=== PATIENT | female | born 1940 | race Caucasian/White ===

== ENCOUNTER 2021-06-15 13:48 | Emergency (ER) | payer BC ==
[2021-06-15 14:08] VITALS: BP 163/92; PULSE 97; TEMP 97.2; BMI 19.9
== END 2021-06-15 15:00 | disposition home or self-care (01) ==
LOC: JERFT 13:48
DX: L23.9 Allergic contact dermatitis, unspecified cause (principal)
CPT/HCPCS: 99282-25

== ENCOUNTER 2021-07-27 13:55 | Emergency (ER) | payer BC ==
[2021-07-27 14:27] VITALS: BP 146/80; PULSE 72; TEMP 98.3; BMI 23.4
[2021-07-27] MEDS ORDERED: ALBUTEROL SO4 2.5/IPRATROPIUM 0.5 INH SOL 3 ML VIAL.NEB. NEB ONE ×2 (14:54→15:49)
[2021-07-27] MEDS ORDERED: LORATADINE 10 MG TABLET PO ONE (14:54)
[2021-07-27] MEDS ORDERED: LORATADINE 10 MG TABLET ONE (15:50)
[2021-07-27 16:50] LABS: BASO % 0.7 % (0-2.0); EOS % 0.8 % (0-4.5); HEMATOCRIT 43.4 % (32.4-45.2); HEMOGLOBIN 14.3 GM/dL (10.7-15.3); LYMPH % 38.7 % (8-40); MCH 30.6 pg (25.7-33.7); MCHC 32.9 g/dl (32.0-36.0); MEAN CELL VOLUME 92.9 fl (80-96); MEAN PLT VOLUME 10.2 fl (7.5-11.1); MONO % 8.5 % (3.8-10.2); NEUT % 51.3 % (42.8-82.8); PLATELET COUNT 172 10^3/uL (134-434); RBC 4.67 M/mm3 (3.60-5.2); WHITE BLOOD COUNT 5.8 K/mm3 (4.0-10.0)
[2021-07-27 16:51] LABS: PH,URINE 5.5 (5.0-8.0); URINE APPEARANCE CLEAR; URINE BILIRUBIN NEGATIVE (NEGATIVE); URINE COLOR YELLOW; URINE GLUCOSE (UA) NEGATIVE (NEGATIVE); URINE KETONE NEGATIVE (NEGATIVE); URINE LEUK ESTERASE NEGATIVE (NEGATIVE); URINE NITRITE NEGATIVE (NEGATIVE); URINE PROTEIN NEGATIVE (NEGATIVE); URINE UROBILINOGEN 0.2 mg/dL (0.2-1.0)
[2021-07-27 17:17] LABS: ALBUMIN 4.6 g/dl (3.4-5.0); BLOOD UREA NITROGEN 36.5 mg/dL (7-18); CALCIUM 10.4 mg/dL (8.5-10.1)
[2021-07-27 17:22] LABS: BILIRUBIN,TOTAL 0.6 mg/dL (0.2-1); CREATININE 1.1 mg/dL (0.55-1.3); TOT PROT 9.1 g/dl (6.4-8.2)
== END 2021-07-27 17:43 | disposition home or self-care (01) ==
LOC: JER 13:55
PROC: 3E0F7GC Introduction of Other Therapeutic Substance into Respiratory Tract, Via Natural or Artificial Opening (ICD-10-PCS; principal; 2021-07-27)
DX: R06.02 Shortness of breath (principal)
CPT/HCPCS: 0241U-QW; 36415; 71046-TC-FY; 80053; 81003; 83880; 84484; 85025; 87086; 93005; 93010; 94640; 99285-25

== ENCOUNTER 2022-03-05 17:16 | Emergency (ER) | payer BC, OTHER ==
[2022-03-05 17:37] VITALS: BP 181/94; PULSE 78; RESP 16; TEMP 97.6; BMI 19.1
[2022-03-05] MEDS ORDERED: SILVER SULFADIAZINE 1% TOP CREAM 50 GM JAR TP ONE (17:37)
== END 2022-03-05 18:50 | disposition home or self-care (01) ==
LOC: JER 17:16 → JERFT 17:16
DX: T23.271A Burn of second degree of right wrist, initial encounter (principal); X12.XXXA Contact with other hot fluids, initial encounter
CPT/HCPCS: 99282-25